=== PATIENT | male | born 1985 | race Caucasian/White ===

== ENCOUNTER 2018-12-17 05:35 | Day surgery (SDC) | payer OTHER ==
[2018-12-12 10:20] LABS: BASOPHILS % (AUTO) 0.7 % (0-1); EOSINOPHILS # (AUTO) 0.1 X10'3 (0-0.9); EOSINOPHILS % (AUTO) 2.1 % (0-6); LYMPHOCYTES # (AUTO) 1.6 X10'3 (1.1-4.8); LYMPHOCYTES % (AUTO) 26.3 % (21-51); MEAN CORPUSCULAR HEMOGLOBIN 26.9 PG (27.0-31.0); MEAN CORPUSCULAR HGB CONC 33.4 g/dL (33.0-36.5); MEAN CORPUSCULAR VOLUME 80.6 FL (78-98); MEAN PLATELET VOLUME 8.1 FL (7.4-10.4); MONOCYTES # (AUTO) 0.5 X10'3 (0-0.9); MONOCYTES % (AUTO) 8.9 % (2-12); NEUTROPHILS # (AUTO) 3.8 X10'3 (1.8-7.7); PRE OP HEMATOCRIT 44.9 % (42.0-52.0); PRE OP PLATELET COUNT 230 X10'3 (140-440); RED BLOOD COUNT 5.58 X10'6 (4.70-6.10); RED CELL DISTRIBUTION WIDTH 13.6 % (11.5-14.5)
[2018-12-12 10:31] LABS: ALANINE AMINOTRANSFERASE 55 U/L (12-78); ALBUMIN 3.9 G/DL (3.4-5.0); ALKALINE PHOSPHATASE 58 IU/L (46-116); ANION GAP 8 (8-16); ASPARTATE AMINO TRANSFERASE 23 U/L (10-37); BILIRUBIN,TOTAL 0.6 MG/DL (0.1-1.0); BLOOD UREA NITROGEN 12 MG/DL (7-18); BUN/CREATININE RATIO 11.9 (5.4-32.0); CALCIUM 8.7 MG/DL (8.5-10.1); CHLORIDE 106 MMOL/L (99-107); CREATININE 1.01 MG/DL (0.60-1.10); GLUCOSE 98 MG/DL (70-104); POTASSIUM 4.1 MMOL/L (3.5-5.1); SODIUM 143 MMOL/L (135-145); TOTAL CARBON DIOXIDE 29.5 MMOL/L (24-32); TOTAL PROTEIN 7.8 G/DL (6.4-8.2); eGFR 86 ML/MIN
[2018-12-17] VITALS (9 sets, daily range): BP systolic 114–126; BP diastolic 62–80
[~2018-12-17] VITALS: Ht 182.9 cm; Wt 110.6 kg
[~2018-12-17 05:35] MED LIST: ASPI1TAB5 PO; CHOL400T PO; cefazolin/dext.iso 2gm/50ml 50 ML IV ONE; famotidine 20mg tablet PO ONE; ringers solution, lacted 1,000 ML IV SCH
[2018-12-17] MEDS ORDERED: LIDOcaine 1% (10mg/ml) 2ml vial ONE (06:22)
[2018-12-17] MEDS ORDERED: BUPIVAcaine/PF 2.5 mg/ml (0.25%) 30ml vial ONE (06:37)
[2018-12-17] MEDS ORDERED: phenylephrine 10mg/ml inj. ONE (07:10)
[2018-12-17] MEDS ORDERED: sevoflurane 250ml liquid IH ONE (07:10)
[2018-12-17] MEDS ORDERED: fentaNYL/PF 50MCG/1 ML 2ML syringe ONE (07:14)
[2018-12-17] MEDS ORDERED: MIDAZolam 5mg/5ml vial ONE (07:14)
[2018-12-17] MEDS ORDERED: ROPIVAcaine 0.2%/PF PAIN PUMP 550 ML IJ SCH (08:25)
[2018-12-17] MEDS ORDERED: HYDROmorphone inj. 0.5 MG/0.5 ML DISP.SYRIN IV PRN ×2 (08:25)
[2018-12-17] MEDS ORDERED: meperidine/PF 25mg/ml syringe IV PRN ×2 (08:25)
[2018-12-17] MEDS ORDERED: ondansetron/PF 4mg/2ml inj IV PRN (08:25)
[2018-12-17] MEDS ORDERED: ringers solution, lacted 1,000 ML IV SCH (08:25)
[2018-12-17] MEDS ORDERED: propofol inj 20 ML IV ONE (08:59)
[2018-12-17] MEDS ORDERED: rocuronium 10mg/ml inj IV ONE (08:59)
[2018-12-17] MEDS ORDERED: neostigmine methylsulfate 1 MG/ML 10ml vial ONE (08:59)
[2018-12-17] MEDS ORDERED: LIDOcaine 1%/PF 5ML 10 MG/ML VIAL ONE (08:59)
[2018-12-17] MEDS ORDERED: dexamethasone sod phosphate 4mg/ml inj. ONE (08:59)
[2018-12-17] MEDS ORDERED: ROPIVAcaine 0.5% (5mg/ml) 30ml vial ONE (08:59)
[2018-12-17] MEDS ORDERED: ondansetron/PF 4mg/2ml inj ONE (08:59)
[2018-12-17] MEDS ORDERED: glycopyrrolate 0.2mg/ml inj ONE (08:59)
[2018-12-17] MEDS ORDERED: HYDROcodone/acetaminophen 10/325mg tab PO PRN (09:45)
--- NOTE | 2018-12-17 09:45 | NUR ---
ADMITTED TO PACU FROM OR ACCOMPANIED BY ANESTHESIA. INTIAL PHYSICAL ASSESSMENT DONE AND RECORDED. AWAKE AND RESPONSE ON ARRIVE YO PACU, REPORT RECEIVED FROM ANESTHESIA.
--- NOTE | 2018-12-17 11:00 | NUR ---
Discharge criteria met, discharge instructions given, demonstrates verbal understanding. Shoulder sleeve with powder abel placed on left shoulder, instructed patient and on use of ON Q pump, manufacturers instructions given and reviewed. On Q set a [address] Dior instructions. Discharged home in good condition.
== END 2018-12-17 11:00 | disposition home or self-care (01) ==
LOC: PAS 05:35
PROVIDERS: ATTEND Orthopaedic Surgery
DX: S43.432A Superior glenoid labrum lesion of left shoulder, initial encounter (principal); S42.292A Other displaced fracture of upper end of left humerus, initial encounter for closed fracture; Z87.891 Personal history of nicotine dependence; G43.909 Migraine, unspecified, not intractable, without status migrainosus; Z79.899 Other long term (current) drug therapy; Z89.512 Acquired absence of left leg below knee; X58.XXXA Exposure to other specified factors, initial encounter; Y93.89 Activity, other specified; Y92.89 Other specified places as the place of occurrence of the external cause; Y99.8 Other external cause status
CPT/HCPCS: 29807; 36415; 80053; 82948; 85025; C1713; J1100; J2001; J2250; J2370; J2405; J2704; J2710; J2795; J3010; J3490; J7120; A4565; A4618; A6449; A7000; J0690